=== PATIENT | female | born 1975 | race Caucasian/White ===

== ENCOUNTER 2024-04-07 08:52 | Outpatient (CLI) | payer BC ==
[2024-04-07] MEDS ORDERED: Iopamidol 370 76% 100 ML VIAL ONE (14:48)
== END 2024-04-07 08:53 | disposition home or self-care (01) ==
LOC: BICCT 08:52
PROVIDERS: ATTEND Internal Medicine Gastroenterology
DX: K76.0 Fatty (change of) liver, not elsewhere classified (principal); K21.9 Gastro-esophageal reflux disease without esophagitis; D3A.00 Benign carcinoid tumor of unspecified site; Z12.11 Encounter for screening for malignant neoplasm of colon; R10.13 Epigastric pain; D18.09 Hemangioma of other sites; K57.30 Diverticulosis of large intestine without perforation or abscess without bleeding; D25.9 Leiomyoma of uterus, unspecified; M47.816 Spondylosis without myelopathy or radiculopathy, lumbar region; M47.814 Spondylosis without myelopathy or radiculopathy, thoracic region
CPT/HCPCS: 36415; 74177; 82565; Q9967